=== PATIENT | female | born 1950 | race American Indian/Alaskan Native ===

== ENCOUNTER 2016-10-04 10:10 | Inpatient (IN) | payer OTHER ==
--- NOTE | 2016-10-04 10:44 | Emergency Department Report ---
Chief Complaint: Chest Pain Stated Complaint: ABD PAIN LEFT SIDE Time Seen by Provider: 10/04/16 10:39 - HPI History of Present Illness: 66 y/o female complain of chest pain x 1 day with right flank pain .pt state pain start last night at work .pt state pain is sharp pain in the right flank pain.no prior medication .no prior injury . - ROS Review of Systems: per HPI - Exam Vital Signs: Vital Signs 10/04/16 10:19 Temperature 99.2 F Pulse Rate 95 H Respiratory 18 Rate Blood Pressure 175/82 O2 Sat by Pulse 97 Oximetry Physical Exam: GENERAL: The patient is well-developed and well-nourished. Patient is in NAD. HENT: Normocephalic. Atraumatic. Patient has moist mucous membranes. Throat: No erythema, swelling or exudates. EYES: Extraocular motions are intact, PERRL NECK: Supple. No meningitic signs are noted. There is no adenopathy noted. CHEST/LUNGS: Clear to auscultation bilaterally. No wheezing, rales or rhonchi noted. There is no respiratory distress noted. HEART/CARDIOVASCULAR: Regular rate and rhythm. Normal S1 S2. No murmurs, rubs , clicks, or gallops. ABDOMEN: Abdomen is soft, nontender.. Bowel sounds normoactive. There is no abdominal distention. Negative rebound tenderness. : Deferred. SKIN: There is no rash. There is no edema. There is no diaphoresis. NEURO: The patient is A&Ox3. The patient has no focal neurologic deficits. MUSCULOSKELETAL: There is no tenderness or deformity. There is no limitation range of motion. PSYCH: Pt has appropriate mood and affect. MSE screening note: Focused history and physical exam performed. Due to findings the following was ordered: ED Disposition for MSE Condition: Stable
[2016-10-04 11:24] LABS: Basophils % (Auto) 0.6 % (0.0-1.8); Eosinophils % (Auto) 0.1 % (0.0-4.3); Hematocrit 38.7 % (30.3-42.9); Hemoglobin 12.9 gm/dl (10.1-14.3); Mean Corpuscular HGB Conc 33 % (30-34); Mean Corpuscular Hemoglobin 29 pg (28-32); Mean Corpuscular Volume 86 fl (79-97); Platelet Count 340 K/mm3 (140-440); Red Blood Count 4.52 M/mm3 (3.65-5.03); White Blood Count 18.3 K/mm3 (4.5-11.0)
[2016-10-04 11:26] LABS: Creatine Kinase MB < 1.0 ng/mL (0.0-4.0)
[2016-10-04 11:27] LABS: Anion Gap 21 mmol/L; BUN/Creatinine Ratio 11.66; Blood Urea Nitrogen 7 mg/dL (7-17); Calcium 9.5 mg/dL (8.4-10.2); Carbon Dioxide 26 mmol/L (22-30); Chloride 92.8 mmol/L (98-107); Creatine Kinase 47 units/L (30-135); Glucose 143 mg/dL (65-100); Potassium 3.6 mmol/L (3.6-5.0); Sodium 136 mmol/L (137-145)
[2016-10-04 11:32] LABS: INR 0.95 (0.87-1.13)
[2016-10-04 11:35] LABS: Bilirubin,Urine NEG (Negative); Blood,Urine NEG (Negative); Ketones,Urine NEG (Negative); Leukocyte Esterase,Urine NEG (Negative); Mucus,Urine FEW /HPF; Nitrite,Urine NEG (Negative); Protein,Urine <15 mg/dL mg/dL (Negative); Urobilinogen,Urine < 2.0 mg/dL (<2.0); WBC,Urine < 1.0 /HPF (0.0-6.0)
--- NOTE | 2016-10-04 17:34 | XRay Report ---
FINAL REPORT EXAM: XR CHEST ROUTINE 2V HISTORY: chest pain TECHNIQUE: PA and lateral views of the chest PRIORS: None. FINDINGS: Lines, tubes, and devices: N/A Lungs and pleura: Trachea is normal in position. Early infiltrate or atelectasis is noted in the left lower lobe posteriorly. There is a single linear parenchymal marking extending laterally from the right hilum. This may represent scarring or atelectasis. There is no evidence for pleural effusion, vascular congestion, or pneumothorax. Cardiomediastinal silhouette: Cardiac and mediastinal silhouettes are unremarkable. Other: Bony structures are intact. IMPRESSION: infiltrate or atelectasis in the left lower lobe posteriorly. Linear scarring or atelectasis extending from the right hilum.
[2016-10-04] MEDS ORDERED: ZOFRAN IV ONE (21:17)
[2016-10-04] MEDS ORDERED: MORPHINE IV ONE (21:17)
[2016-10-04] MEDS ORDERED: PEPCID IV ONE (21:17)
[2016-10-04] MEDS ORDERED: NACL ONE (21:18)
[2016-10-04] MEDS ORDERED: TYLENOL PO ONE (21:18)
--- NOTE | 2016-10-04 21:19 | Emergency Department Report ---
ED General Adult HPI - General Chief complaint: Chest Pain Stated complaint: ABD PAIN LEFT SIDE Time Seen by Provider: 10/04/16 20:58 Source: patient, RN notes reviewed Mode of arrival: Ambulatory Limitations: No Limitations - History of Present Illness Initial comments: This is a 66-year-old female, previously unknown to me. She does not have a primary care doctor. She reports a past medical history of glaucoma. Denies a history of abdominal surgeries. Also has hypertension. She presents to the ER complaining of left-sided abdominal pain. The pain is epigastric, left upper quadrant and left lower quadrant. It is sharp. It increases with palpation and range of motion. It decreases with rest. Positive nausea, no vomiting. No irritative or obstructive urinary symptoms, positive constipation for 2 days. No hematemesis. No bright red blood per rectum. Of note, on review of systems the patient did endorse that she had central chest pressure and discomfort that was independent of palpation and worsened with inspiration. This has been present on and off for the past few days as well. There is no leg pain. No leg swelling. No recent trips greater than 4 hours. No recent hospital admissions. The pain does not radiate to the back, arms and neck. It is not associated with vomiting or diaphoresis. -: Gradual Location: chest, abdomen Quality: burning, aching Consistency: intermittent Improves with: rest Worsens with: movement Associated Symptoms: chest pain, loss of appetite, malaise, nausea/vomiting, weakness - Related Data Home Medications Medication Instructions Recorded Confirmed Last Taken Hydrochlorothiazide [HCTZ] 25 mg PO QDAY 10/04/16 10/04/16 10/04/16 amLODIPine [Norvasc] 5 mg PO DAILY 10/04/16 10/04/16 10/04/16 Allergies Allergy/AdvReac Type Severity Reaction Status Date / Time codeine Allergy Vomiting Verified 10/04/16 10:19 ED Review of Systems ROS: Stated complaint: ABD PAIN LEFT SIDE Other details as noted in HPI Constitutional: malaise, weakness Eyes: denies: eye discharge ENT: denies: epistaxis Respiratory: see HPI Cardiovascular: chest pain Gastrointestinal: abdominal pain, constipation. denies: hematochezia Genitourinary: denies: urgency, dysuria Musculoskeletal: back pain Skin: denies: lesions Neurological: weakness Psychiatric: denies: anxiety ED Past Medical Hx - Past Medical History Hx Hypertension: Yes Hx Arthritis: Yes Additional medical history: glaucoma - Social History Smoking Status: Current Every Day Smoker - Medications Home Medications: Home Medications Medication Instructions Recorded Confirmed Last Taken Type Hydrochlorothiazide [HCTZ] 25 mg PO QDAY 10/04/16 10/04/16 10/04/16 History amLODIPine [Norvasc] 5 mg PO DAILY 10/04/16 10/04/16 10/04/16 History ED Physical Exam - General Limitations: No Limitations General appearance: alert, in no apparent distress - Head Head exam: Present: atraumatic, normocephalic - Eye Eye exam: Present: normal appearance, EOMI. Absent: nystagmus - ENT ENT exam: Present: normal exam, normal orophraynx, mucous membranes moist, normal external ear exam - Neck Neck exam: Present: normal inspection. Absent: tenderness, meningismus - Respiratory Respiratory exam: Present: normal lung sounds bilaterally. Absent: respiratory distress, wheezes, rales, rhonchi, stridor, chest wall tenderness - Cardiovascular Cardiovascular Exam: Present: regular rate, normal rhythm, normal heart sounds. Absent: bradycardia, tachycardia, irregular rhythm, systolic murmur, diastolic murmur, rubs, gallop - GI/Abdominal GI/Abdominal exam: Present: soft, tenderness, normal bowel sounds, other (left lower quadrant, left lower quadrant, left upper quadrant tender. No rebound, guarding or peritoneal signs.). Absent: distended, guarding, rebound, rigid, pulsatile mass - Extremities Exam Extremities exam: Present: normal inspection, full ROM, normal capillary refill. Absent: tenderness, pedal edema, joint swelling, calf tenderness - Back Exam Back exam: Present: normal inspection, full ROM. Absent: tenderness, CVA tenderness (R), CVA tenderness (L), muscle spasm, paraspinal tenderness, vertebral tenderness - Neurological Exam Neurological exam: Present: alert, oriented X3, other (Extraocular movements intact. Tongue midline. No facial droop. Facial sensation intact to light touch in the V1, V2, V3 distribution bilaterally. 5 and 5 strength in 4 extremities.. Sensation is intact to light touch in 4 extremities.). Absent: motor sensory deficit - Psychiatric Psychiatric exam: Present: normal affect, normal mood - Skin Skin exam: Present: warm, dry, intact, normal color. Absent: rash ED Course Vital Signs 10/04/16 10/04/16 10/04/16 10:19 21:00 21:01 Temperature 99.2 F Pulse Rate 95 H 96 H 93 H Respiratory 18 26 H 31 H Rate Blood Pressure 175/82 142/71 O2 Sat by Pulse 97 100 Oximetry 10/04/16 10/04/16 10/04/16 21:02 21:06 21:07 Temperature 98.7 F Pulse Rate 94 H Respiratory 19 20 Rate Blood Pressure 142/71 O2 Sat by Pulse 97 100 Oximetry 10/04/16 10/04/16 10/04/16 21:30 22:29 22:30 Temperature Pulse Rate 89 84 Respiratory 32 H 22 Rate Blood Pressure 128/76 121/48 121/48 O2 Sat by Pulse 100 99 100 Oximetry 10/04/16 10/04/16 10/04/16 22:40 23:00 23:30 Temperature Pulse Rate 85 87 82 Respiratory 28 H 21 22 Rate Blood Pressure 121/48 116/58 116/58 O2 Sat by Pulse 97 97 Oximetry 10/05/16 10/05/16 10/05/16 00:00 00:30 01:00 Temperature Pulse Rate 103 H Respiratory 26 H Rate Blood Pressure 110/58 116/53 115/53 O2 Sat by Pulse 90 91 96 Oximetry 10/05/16 10/05/16 10/05/16 01:13 01:30 01:40 Temperature Pulse Rate Respiratory Rate Blood Pressure 115/53 110/50 110/50 O2 Sat by Pulse 93 97 93 Oximetry 10/05/16 10/05/16 10/05/16 01:42 01:44 02:04 Temperature Pulse Rate 134 H 76 72 Respiratory 17 Rate Blood Pressure 110/50 110/50 110/54 O2 Sat by Pulse 90 92 Oximetry 10/05/16 10/05/16 10/05/16 02:10 03:00 04:00 Temperature Pulse Rate 76 75 Respiratory 28 H 18 Rate Blood Pressure 114/59 119/66 O2 Sat by Pulse 100 90 93 Oximetry - Reevaluation(s) Reevaluation #1: 10/04/16 22:07 Differential diagnosis: Colitis, diverticulitis, enteritis, pneumonia, malignancy assessment and plan: 66-year-old female with a main complaint of abdominal pain. She is tender, has a low-grade temperature of 99.2, and leukocytosis 18. I highly suspect colonic pathology. She will be treated symptomatically with pain medication. She has no pulmonary embolus or DVT risk factors, she is low risk by well's criteria. I find her to be low risk by ADAN score, and low risk by heart score. X-ray chest suggests infiltrate versus atelectasis. We will obtain contrast-enhanced CT scan of the abdomen/pelvis and reassess. Reevaluation #2: 10/04/16 22:09 Sodium: 136 Potassium: 3.6 Chloride: 92.8 Reevaluation #3: 10/04/16 23:11 She reports she feels improved. Pain is somewhat improved. CT scan demonstrates pierre-diverticulitis with microperforations, with no abscess. Antibiotics ordered. Case is discussed with general surgery, Dr. Mariscal, who is going to follow as a consult. Case is discussed with the Hospital physician , , who accepts the patient to his service. Medical decision makin-year-old female with perforated diverticulitis, tenderness, leukocytosis requires inpatient admission for pain control, IV antibiotics, Gen. surgery consultation, serial abdominal exams. ED Medical Decision Making - Lab Data Result diagrams: 10/04/16 10:50 10/04/16 10:50 Vital Signs 10/04/16 10/04/16 10/04/16 10:19 21:00 21:01 Temperature 99.2 F Pulse Rate 95 H 96 H 93 H Respiratory 18 26 H 31 H Rate Blood Pressure 175/82 142/71 O2 Sat by Pulse 97 100 Oximetry 10/04/16 10/04/16 21:06 21:07 Temperature 98.7 F Pulse Rate Respiratory 20 Rate Blood Pressure O2 Sat by Pulse 100 Oximetry Labs 10/04/16 10/04/16 10/04/16 10:50 10:50 10:50 WBC 18.3 H RBC 4.52 Hgb 12.9 Hct 38.7 MCV 86 MCH 29 MCHC 33 RDW 14.0 Plt Count 340 Lymph % (Auto) 12.6 L [place] % (Auto) 4.6 Eos % (Auto) 0.1 Baso % (Auto) 0.6 Lymph # 2.3 [place] # 0.8 Eos # 0.0 Baso # 0.1 Seg Neutrophils % 82.1 H Seg Neutrophils # 15.0 H PT 12.6 INR 0.95 APTT 25.0 Carbon Dioxide 26 BUN 7 Creatinine 0.6 L Estimated GFR > 60 BUN/Creatinine Ratio 11.66 Glucose 143 H Calcium 9.5 Total Creatine Kinase 47 CK-MB (CK-2) < 1.0 CK-MB (CK-2) Rel Index 2.1 Troponin T < 0.010 Urine Color Urine Turbidity Urine pH Ur Specific [place] Urine Protein Urine Glucose (UA) Urine Ketones Urine Blood Urine Nitrite Urine Bilirubin Urine Urobilinogen Ur Leukocyte Esterase Urine WBC (Auto) Urine RBC (Auto) U Epithel Cells (Auto) Urine Mucus 10/04/16 10:59 WBC RBC Hgb Hct MCV MCH MCHC RDW Plt Count Lymph % (Auto) [place] % (Auto) Eos % (Auto) Baso % (Auto) Lymph # [place] # Eos # Baso # Seg Neutrophils % Seg Neutrophils # PT INR APTT Carbon Dioxide BUN Creatinine Estimated GFR BUN/Creatinine Ratio Glucose Calcium Total Creatine Kinase CK-MB (CK-2) CK-MB (CK-2) Rel Index Troponin T Urine Color Yellow Urine Turbidity Clear Urine pH 5.0 Ur Specific [place] 1.014 Urine Protein <15 mg/dl Urine Glucose (UA) Neg Urine Ketones Neg Urine Blood Neg Urine Nitrite Neg Urine Bilirubin Neg Urine Urobilinogen < 2.0 Ur Leukocyte Esterase Neg Urine WBC (Auto) < 1.0 Urine RBC (Auto) 1.0 U Epithel Cells (Auto) 1.0 Urine Mucus Few - EKG Data 10/04/16 22:10 normal sinus, 90 bpm, QTC 406 ms, nonspecific T-wave abnormality , not morphologically consistent with STEMI. - Radiology Data Radiology results: report reviewed, image reviewed X-ray chest demonstrates infiltrate or atelectasis in the left lower lobe posteriorly. There is linear scarring or atelectasis extending from the right hilum. Critical care attestation.: If time is entered above; I have spent that time in minutes in the direct care of this critically ill patient, excluding procedure time. ED Disposition Clinical Impression: Diverticulitis Qualifiers: Diverticulitis site: unspecified part of intestinal tract Diverticulitis bleeding: without bleeding Diverticulitis complication: with perforation Qualified Code(s): K57.80 - Diverticulitis of intestine, part unspecified, with perforation and abscess without bleeding Disposition: OP ADMITTED IP TO THIS HOSP Is pt being admited?: Yes Condition: Good
[2016-10-04] MEDS: NACL 0.9% 500 ML IV SCH (22:41)
[2016-10-04] MEDS ORDERED: ZOSYN/NS 4.5GM/100ML 100 ML IV ONE (23:11)
--- NOTE | 2016-10-04 23:34 | Cat Scan Report ---
FINAL REPORT EXAM: CT ABDOMEN PELVIS W CON HISTORY: left sided abd pain TECHNIQUE: Standard enhanced CT of the abdomen and pelvis. Delayed images were also obtained through the abdomen and pelvis. Coronal and sagittal reconstruction was also performed. Contrast: 100 mL Omnipaque 300 given IV. PRIORS: CT a/P 01/23/2015 FINDINGS: There is an inflammatory process in the left flank. Most of the inflammation appears to surround the mid to distal descending colon in an area where there is diverticulosis. Findings are most likely consistent with active diverticulitis. There are a few small bubbles of air in the adjacent fat suggesting localized perforation. No discrete abscess or phlegmon is noted. The inflammatory changes extend along Gerota's fascia inferiorly to the level of the superior acetabula. Superiorly, inflammatory changes extend to the pancreatic tail and inferior tip of the spleen. There are a number of diverticuli also seen in the distal sigmoid colon and scattered in the descending colon. Within the abdomen, the liver, spleen, pancreas, adrenal glands, and kidneys are unremarkable. Gallbladder has been surgically removed. No evidence for retroperitoneal or pelvic lymphadenopathy is seen. The small bowel loops have normal caliber. Within the pelvis, the bladder is unremarkable. The uterus is enlarged and contains several focal rounded areas of hyperdensity, probably due to underlying fibroids. The largest is in the posterior fundus measuring 3.5 x 3.9 cm (axial image 133). No evidence for mass or lymphadenopathy is seen in the pelvis. Images through the upper abdomen include the lung bases which demonstrate mild linear atelectasis in the left base. Bony structures show no focal abnormalities and are intact. IMPRESSION: 1. Findings consistent with acute diverticulitis in the mid to distal descending colon. Evidence for localized perforation is seen but no abscess is noted. Significant surrounding inflammatory changes are present along Gerota's fascia. 2. Uterine fibroids 3. Mild left basilar atelectasis
--- NOTE | 2016-10-05 00:23 | Event Note ---
Date: 10/04/16 See H/p in reports Acute Diverticulitis HTN DVT prophylaxis
[2016-10-05] MEDS ORDERED: DULCOLAX PR PRN (00:29)
[2016-10-05] MEDS ORDERED: MILK OF MAGNESIA PO PRN (00:29)
[2016-10-05] MEDS ORDERED: TYLENOL PO PRN ×2 (00:29→00:38)
[2016-10-05] MEDS ORDERED: TYLENOL PR PRN (01:00)
[2016-10-05] MEDS ORDERED: LOVENOX SUB-Q ONE (01:51)
--- NOTE | 2016-10-05 01:58 | Admit Criteria Form ---
Admission Criteria Documentation: DIVERTICULITIS, ACUTE Clinical Indications for Admission to Inpatient Care (Place 'X' for any and all applicable criteria): Admission is indicated for ANY ONE of the following (1)(2)(3)(4): [ X]I. Peritoneal signs on physical examination (eg, acute abdominal pain, abdominal tenderness and guarding) [ ]II. Hemodynamic instability [ ]III. Persistent gross bleeding per rectum [ ]IV. Need for inpatient surgical intervention [X ]V. Significant abnormality on imaging study including ANY ONE of the following: [ X]a) Abscess [ ]b) Obstruction [ ]c) Fistula [ ]d) Ileus [ ]e) Free perforation [ ]. Immunocompromised patient (steroid use, chemotherapy, uremia, AIDS , transplant patient ) with acute symptoms [ ]VII Inpatient admission required rather than observation care (also use Diverticulitis, Acute: Observation Care as appropriate) because of ANY ONE of the following: [ ]a) High fever or infection. requiring inpatient admission as indicated by ANY ONE of the following(5): [ ]1) Appropriate outpatient or observation care antimicrobial treatment unavailable, not effective, not feasible [ ]2) Temperature > 103.1 degrees F (39.5 degrees C) (oral) or < 96.8 degrees F (36 degrees C)(rectal) that does not respond to all emergency treatment measures [ ]3) Temperature> 104.9 degrees F (40.5 degrees C)( oral) [ ]4) Documented bacteremia [ ]b) Severe pain requiring acute inpatient management [ ]c) Severe electrolyte abnormalities requiring inpatient care [ ]d) Ongoing transfusion for blood loss (> 2 units) [ ]e) IV fluid to replace significant ongoing losses (> 3 L/m2 per day) [ ]f) Parenteral nutrition regimen that must be implemented on inpatient basis [ ]g) Other condition, treatment or monitoring requiring inpatient admission Extended stay beyond goal length of stay may be needed for (2) (15) : [ ]a) Unresolved symptoms (19) [ ]b) Complications [ ]c) Diverticular hemorrhage(2) The original [facility] [employer] content created by [facility] has been revised. The portions of the content which have been revised are identified through the use of italic text or in bold, and [facility] has neither reviewed nor approved the modified material. All other unmodified content is copyright [facility]. Please see references footnoted in the original [facility] edition 2016 Admission Criteria Met: Yes
[2016-10-05] MEDS ORDERED: ZOSYN/NS 4.5GM/100ML 100 ML IV SCH (02:00)
[2016-10-05] MEDS ORDERED: CATAPRES-TTS PATCH TD SCH (02:00)
[2016-10-05] MEDS: D5NS 1,000 ML IV SCH ×3 (02:07→21:50)
--- NOTE | 2016-10-05 02:25 | History and Physical Report ---
CHIEF COMPLAINT: Left upper quadrant and left flank pain, going on for 2 days. HISTORY OF PRESENT ILLNESS: A 66-year-old female, comes in for severe abdominal pain, especially in the left upper quadrant, left flank, and left lower quadrant. Pain is about 10 on a scale of 1-10, sharp in nature, increases with palpation and range of motion, decreases with rest. Nausea present. No vomiting. No constipation. No altered bowel movement. No hematemesis. No hematochezia. Also central chest pressure, worsening with inspiration. This has been present on and off for the past 2 days. No leg pain. No leg swelling. No shortness of breath. PAST MEDICAL HISTORY: Significant for hypertension. CURRENT MEDICATIONS: Hydrochlorothiazide 25 mg once a day and amlodipine 5 mg once a day. SOCIAL HISTORY: Current everyday smoker, about one pack a day. PAST SURGICAL HISTORY: None. FAMILY HISTORY: Significant for hypertension. REVIEW OF SYSTEMS: GENERAL: No fever, no chills. HEENT: No sore throat, no postnasal drip. NECK: Supple. No neck stiffness. No lymphadenopathy. CARDIOVASCULAR AND RESPIRATORY: No cough, no shortness of breath. Some chest pain radiating to the left upper quadrant present. Also, more with inspiration. GASTROINTESTINAL: Left upper quadrant and left lower quadrant pain and tenderness present. EXTREMITIES: Good. No edema, no tingling and numbness. CENTRAL NERVOUS SYSTEM: No focal deficits. SKIN: No rashes. ENDOCRINE: No recent weight gain, weight loss, polyphagia, polyuria, polydipsia. HEMATOLOGIC AND LYMPHATIC: No easy bruising. GENITOURINARY: No hematuria, no flank pain. A 14-point review of systems done other than the left upper quadrant, left flank, and left lower quadrant pain and pain radiating to the left side of the chest, other systems are essentially negative. PHYSICAL EXAMINATION: GENERAL: Elderly female, cooperative during examination. VITAL SIGNS: Blood pressure is 175/82, temperature is 99.2, pulse is 95, respiratory rate is 18. HEENT: Unremarkable. Pupils equal and reactive. NECK: Supple. No lymphadenopathy, no thyromegaly. LUNGS: Clear to auscultation and percussion. Good air entry. CARDIOVASCULAR: S1, S2 heard. No gallop, no murmur, no rub. Apical impulse in the left fifth intercostal space and midclavicular line. ABDOMEN: Left upper quadrant and left lower quadrant tenderness present. Bowel sounds are normal. SKIN: No rashes. CENTRAL NERVOUS SYSTEM: Alert and oriented x 4, no focal deficits. LABORATORY DATA: White count is 18,300, H and H is 12.9 and 38.7, platelet count is [id number]. Sodium, potassium, chloride are pending. BUN and creatinine 7 and 0.6. Lactic acid is 1.5. CK-MB is normal. Urine is normal. CAT scan of the abdomen shows findings consistent with acute diverticulitis in the mid to distal descending colon. Evidence for localized perforation is seen, but no abscess is noted. Significant surrounding inflammatory changes are present along Gerota's fascia. Uterine fibroids present. Mild left basilar atelectasis present. White count is 18,300, H and H is 12.9 and 38.7. ASSESSMENT AND PLAN: 1. Acute diverticulitis. We will start with IV Zosyn for the time being. Small bowel of air in the fat suggesting localized perforation which is microperforation. Can be treated conservatively. Surgery consult requested. Continue IV Zosyn 4.5 q. 8h.,very effective for intra-abdominal infections, Zosyn has both gram-positive and gram-negative and anaerobic coverage. 2. Hypertension. Hydrochlorothiazide and amlodipine kept on hold. TTS-1 patch initiated q. weekly because the patient is n.p.o. 3. Deep venous thrombosis prophylaxis, Lovenox 40 mg subcutaneous daily. JOB# [id number] SIA/JADYN BRYSON
[2016-10-05] MEDS: ZOSYN/NS 4.5GM/100ML 100 ML IV SCH ×3 (08:30→18:18)
--- NOTE | 2016-10-05 08:44 | Consultation ---
History of Present Illness Consult date: 10/05/16 Reason for consult: abdominal pain Chief complaint: abd pain - History of present illness History of present illness: this is a 66 year old female with a 48 hour hx of abd pain, LUQ who presented to the ER with a WBC of 18K, and a CT abd pelvis revealing left sided diverticulitis with microperforation contained in mesentery and no abcess. Past History Past Medical History: hypertension Past Surgical History: No surgical history Social history: smoking Medications and Allergies Allergies Allergy/AdvReac Type Severity Reaction Status Date / Time codeine Allergy Vomiting Verified 10/04/16 10:19 Home Medications Medication Instructions Recorded Confirmed Last Taken Type Hydrochlorothiazide [HCTZ] 25 mg PO QDAY 10/04/16 10/04/16 10/04/16 History amLODIPine [Norvasc] 5 mg PO DAILY 10/04/16 10/04/16 10/04/16 History Active Meds: Active Medications Acetaminophen (Tylenol) 650 mg PO Q4H PRN PRN Reason: Fever Acetaminophen (Tylenol) 650 mg [place] Q4H PRN PRN Reason: Fever Bisacodyl (Dulcolax) 10 mg [place] QDAY PRN PRN Reason: Constipation unrelieved by MOM Clonidine HCl (Catapres-Tts Patch) 0.1 mg TD We [facility] Last Admin: 10/05/16 02:04 Dose: Not Given Enoxaparin Sodium (Lovenox) 40 mg SUB-Q QDAY@2200 COMPA Hydromorphone HCl (Dilaudid) 1 mg IV Q3H PRN PRN Reason: Pain , Severe (7-10) Dextrose/Sodium Chloride (D5ns) 1,000 mls @ 75 mls/hr IV DIRECT [facility] Last Admin: 10/05/16 02:07 Dose: 75 mls/hr Piperacillin Sod/Tazobactam Sod (Zosyn/Ns 4.5gm/100ml) 100 mls @ 200 mls/hr IV Q8H [facility] PRN Reason: Protocol Magnesium Hydroxide (Milk Of Magnesia) 30 ml PO Q4H PRN PRN Reason: Constipation Ondansetron HCl (Zofran) 4 mg IV Q3H PRN PRN Reason: N/V unrelieved by Reglan Sodium Chloride (Nacl 0.9% 500 Ml) 2,000 ml IV NOW [facility] Last Admin: 10/04/16 22:41 Dose: 2,000 ml Review of Systems - Constitutional other (abd pain) Exam Vital Signs Temp Pulse Resp BP Pulse Ox 99.2 F 95 H 18 175/82 97 10/04/16 10:19 10/04/16 10:19 10/04/16 10:19 10/04/16 10:19 10/04/16 10:19 - General physical appearance Positive: no pain - Eyes Positive: PERRL, normal occular movement - ENT Positive: normal pinna, normal nares, normal mucosa, no hearing loss, no congestion - Neck Positive: no masses, no bruits, trachea midline, no venous distension - Respiratory Positive: normal expansion, normal respiratory effort, clear to auscultation - Cardiovascular Rhythm: regular - Extremities Extremities: no ischemia, pulses symmetrical, No edema Peripheral Pulses: within normal limits - Breasts Breasts: deferred - Abdomen Abdomen: Present: bowel sounds normal, other (tender LUQ with no rebound or guarding) Results - Labs 10/04/16 10:50 10/04/16 10:50 Assessment and Plan Complicated left sided diverticulitis, first episode with microperforation, constained within mesentery, no abcess HTN Agree with conservative management, NPO, sips of liquids with meds and ice chips OK IV antibiotics, iv fluids, pain control, serial WBC NO role for surgical intervention at present-conservative management.
[2016-10-05] MEDS: DILAUDID IV PRN ×2 (12:33→21:36)
[2016-10-05] MEDS: ZOFRAN IV PRN (18:27)
[2016-10-05] MEDS: LOVENOX SUB-Q SCH (21:35)
[2016-10-05] MEDS: NACL 0.9% 500 ML IV SCH (22:57)
--- NOTE | 2016-10-06 06:37 | Event Note ---
Date: 10/06/16 Fever noted, could be secondary to Zosyn, (drug fever), continue NPO, iv hydration, pain control , conserv management, consider PIC line.
[2016-10-06] MEDS: ZOSYN/NS 4.5GM/100ML 100 ML IV SCH ×2 (06:43→10:34)
--- NOTE | 2016-10-06 10:17 | XRay Report ---
ABDOMEN TWO VIEWS: History: Abdominal pain. There is no evidence of free air beneath the diaphragms. The gas pattern within the abdomen is unremarkable. There is no evidence of bowel dilatation, significant air-fluid levels, or masses. Cholecystectomy changes are noted. The psoas margins are adequately visualized. IMPRESSION: Unremarkable abdomen.
[2016-10-06] MEDS: LEVAQUIN 500MG/100ML 100 ML IV SCH (10:39)
[2016-10-06] MEDS: DILAUDID IV PRN ×3 (10:39→22:50)
[2016-10-06] MEDS: TYLENOL PO PRN ×2 (13:27→22:49)
[2016-10-06] MEDS: FLAGYL 500 MG/100 ML 100 ML IV SCH ×2 (13:28→22:49)
[2016-10-06 14:15] LABS: Basophils % (Auto) 0.3 % (0.0-1.8); Eosinophils % (Auto) 0.3 % (0.0-4.3); Hematocrit 32.1 % (30.3-42.9); Hemoglobin 10.6 gm/dl (10.1-14.3); Mean Corpuscular HGB Conc 33 % (30-34); Mean Corpuscular Hemoglobin 29 pg (28-32); Mean Corpuscular Volume 88 fl (79-97); Platelet Count 259 K/mm3 (140-440); Red Blood Count 3.66 M/mm3 (3.65-5.03); Red Cell Distribution Width 13.5 % (13.2-15.2)
[2016-10-06] MEDS: D5NS 1,000 ML IV SCH (18:15)
[2016-10-06] MEDS: LOVENOX SUB-Q SCH (22:49)
[2016-10-06] MEDS: NACL 0.9% 500 ML IV SCH (23:09)
[2016-10-07] MEDS: DILAUDID IV PRN ×3 (03:11→21:28)
[2016-10-07] MEDS: FLAGYL 500 MG/100 ML 100 ML IV SCH ×3 (05:16→21:30)
--- NOTE | 2016-10-07 07:34 | Event Note ---
Date: 10/07/16 Fever down off Zosyn, on levaquin and flagyll, appears clinically improved, still complains of left flank pain, continue present therapy.
[2016-10-07 07:39] LABS: Basophils % (Auto) 0.4 % (0.0-1.8); Eosinophils % (Auto) 0.1 % (0.0-4.3); Hematocrit 29.5 % (30.3-42.9); Hemoglobin 9.8 gm/dl (10.1-14.3); Mean Corpuscular HGB Conc 33 % (30-34); Mean Corpuscular Hemoglobin 29 pg (28-32); Mean Corpuscular Volume 88 fl (79-97); Platelet Count 249 K/mm3 (140-440); Red Blood Count 3.34 M/mm3 (3.65-5.03); Red Cell Distribution Width 13.5 % (13.2-15.2); White Blood Count 10.7 K/mm3 (4.5-11.0)
[2016-10-07] MEDS: D5NS 1,000 ML IV SCH (08:51)
[2016-10-07] MEDS: ZOFRAN IV PRN (08:51)
[2016-10-07] MEDS: LEVAQUIN 500MG/100ML 100 ML IV SCH (10:19)
--- NOTE | 2016-10-07 11:58 | Progress Note ---
Assessment and Plan - Patient Problems (1) Diverticulitis Current Visit: Yes Status: Acute Qualifiers: Diverticulitis site: unspecified part of intestinal tract Diverticulitis bleeding: without bleeding Diverticulitis complication: with perforation Qualified Code(s): K57.80 - Diverticulitis of intestine, part unspecified, with perforation and abscess without bleeding Plan to address problem: Surgery consulted, IV abx, IVF, supportive care, bowel rest, advance diet as tolerated. (2) Abdominal pain Current Visit: Yes Status: Acute Plan to address problem: secondary to diverticulitis. (3) DVT prophylaxis Current Visit: Yes Status: Acute History Interval history: Pt resting in bed, Pt complains of abdominal pain. Pt states that pain has improved since yesterday. Pt tolerating ich chips. Pt denies fever, chills, CP, palpitations. No reported nursing events. Hospitalist Physical - Constitutional Vitals: Temp Pulse Resp BP Pulse Ox 97.0 F L 71 16 128/66 100 10/07/16 08:00 10/07/16 08:00 10/07/16 08:00 10/07/16 08:00 10/07/16 08:00 General appearance: Present: no acute distress - EENT Eyes: Present: PERRL ENT: hearing intact - Neck Neck: Present: supple - Respiratory Respiratory: bilateral: CTA - Cardiovascular Rhythm: regular Heart Sounds: Present: S1 & S2 Peripheral Pulses: within normal limits - Abdominal General gastrointestinal: soft, tender, non-distended, normal bowel sounds, no hepatomegaly, no splenomegaly - Integumentary Integumentary: Present: clear, dry - Psychiatric Psychiatric: appropriate mood/affect, cooperative - Neurologic Neurologic: CNII-XII intact Results - Labs CBC & Chem 7: 10/07/16 06:47 10/04/16 10:50 Labs: Laboratory Last Values WBC 10.7 K/mm3 (4.5-11.0) 10/07/16 06:47 RBC 3.34 M/mm3 (3.65-5.03) L 10/07/16 06:47 Hgb 9.8 gm/dl (10.1-14.3) L 10/07/16 06:47 Hct 29.5 % (30.3-42.9) L 10/07/16 06:47 MCV 88 fl (79-97) 10/07/16 06:47 MCH 29 pg (28-32) 10/07/16 06:47 MCHC 33 % (30-34) 10/07/16 06:47 RDW 13.5 % (13.2-15.2) 10/07/16 06:47 Plt Count 249 K/mm3 (140-440) 10/07/16 06:47 Lymph % (Auto) 26.7 % (13.4-35.0) 10/07/16 06:47 [place] % (Auto) 8.6 % (0.0-7.3) H 10/07/16 06:47 Eos % (Auto) 0.1 % (0.0-4.3) 10/07/16 06:47 Baso % (Auto) 0.4 % (0.0-1.8) 10/07/16 06:47 Lymph # 2.9 K/mm3 (1.2-5.4) 10/07/16 06:47 [place] # 0.9 K/mm3 (0.0-0.8) H 10/07/16 06:47 Eos # 0.0 K/mm3 (0.0-0.4) 10/07/16 06:47 Baso # 0.0 K/mm3 (0.0-0.1) 10/07/16 06:47 Seg Neutrophils % 64.2 % (40.0-70.0) 10/07/16 06:47 Seg Neutrophils # 6.9 K/mm3 (1.8-7.7) 10/07/16 06:47 PT 12.6 Sec. (12.2-14.9) 10/04/16 10:50 INR 0.95 (0.87-1.13) 10/04/16 10:50 APTT 25.0 Sec. (24.2-36.6) 10/04/16 10:50 Carbon Dioxide 26 mmol/L (22-30) 10/04/16 10:50 BUN 7 mg/dL (7-17) 10/04/16 10:50 Creatinine 0.6 mg/dL (0.7-1.2) L 10/04/16 10:50 Estimated GFR > 60 ml/min 10/04/16 10:50 BUN/Creatinine Ratio 11.66 % 10/04/16 10:50 Glucose 143 mg/dL (65-100) H 10/04/16 10:50 Lactic Acid 1.5 mmol/L (0.7-2.0) 10/04/16 21:45 Calcium 9.5 mg/dL (8.4-10.2) 10/04/16 10:50 Total Creatine Kinase 47 units/L (30-135) 10/04/16 10:50 CK-MB (CK-2) < 1.0 ng/mL (0.0-4.0) 10/04/16 10:50 CK-MB (CK-2) Rel Index 2.1 (0-4) 10/04/16 10:50 Troponin T < 0.010 ng/mL (0.00-0.029) 10/04/16 21:45 Urine Color Yellow (Yellow) 10/04/16 10:59 Urine Turbidity Clear (Clear) 10/04/16 10:59 Urine pH 5.0 (5.0-7.0) 10/04/16 10:59 Ur Specific [place] 1.014 (1.003-1.030) 10/04/16 10:59 Urine Protein <15 mg/dl mg/dL (Negative) 10/04/16 10:59 Urine Glucose (UA) Neg mg/dL (Negative) 10/04/16 10:59 Urine Ketones Neg mg/dL (Negative) 10/04/16 10:59 Urine Blood Neg (Negative) 10/04/16 10:59 Urine Nitrite Neg (Negative) 10/04/16 10:59 Urine Bilirubin Neg (Negative) 10/04/16 10:59 Urine Urobilinogen < 2.0 mg/dL (<2.0) 10/04/16 10:59 Ur Leukocyte Esterase Neg (Negative) 10/04/16 10:59 Urine WBC (Auto) < 1.0 /HPF (0.0-6.0) 10/04/16 10:59 Urine RBC (Auto) 1.0 /HPF (0.0-6.0) 10/04/16 10:59 U Epithel Cells (Auto) 1.0 /HPF (0-13.0) 10/04/16 10:59 Urine Mucus Few /HPF 10/04/16 10:59
--- NOTE | 2016-10-07 12:00 | Progress Note ---
Assessment and Plan - Patient Problems (1) Diverticulitis Current Visit: Yes Status: Acute Qualifiers: Diverticulitis site: unspecified part of intestinal tract Diverticulitis bleeding: without bleeding Diverticulitis complication: with perforation Qualified Code(s): K57.80 - Diverticulitis of intestine, part unspecified, with perforation and abscess without bleeding Plan to address problem: Surgery consulted, IV abx, IVF, supportive care, bowel rest, advance diet as tolerated. Add levaquin/flagyl, D/C zosyn (2) Abdominal pain Current Visit: Yes Status: Acute Plan to address problem: secondary to diverticulitis. (3) DVT prophylaxis Current Visit: Yes Status: Acute History Interval history: Pt resting in bed, Pt complains of abdominal pain. Pt spiked fever to 102. no additional reported nursing events. Hospitalist Physical - Constitutional Vitals: Temp Pulse Resp BP Pulse Ox 97.0 F L 71 16 128/66 100 10/07/16 08:00 10/07/16 08:00 10/07/16 08:00 10/07/16 08:00 10/07/16 08:00 General appearance: Present: no acute distress - EENT Eyes: Present: PERRL, EOM intact ENT: hearing intact - Neck Neck: Present: supple - Respiratory Respiratory effort: normal Respiratory: bilateral: CTA - Cardiovascular Rhythm: regular Heart Sounds: Present: S1 & S2 - Extremities Extremities: no ischemia Peripheral Pulses: within normal limits - Abdominal General gastrointestinal: soft, tender, non-distended, normal bowel sounds, no hepatomegaly, no splenomegaly, no mass - Integumentary Integumentary: Present: clear, warm, dry - Psychiatric Psychiatric: appropriate mood/affect, cooperative - Neurologic Neurologic: CNII-XII intact Results - Labs CBC & Chem 7: 10/07/16 06:47 10/04/16 10:50 Labs: Laboratory Last Values WBC 10.7 K/mm3 (4.5-11.0) 10/07/16 06:47 RBC 3.34 M/mm3 (3.65-5.03) L 10/07/16 06:47 Hgb 9.8 gm/dl (10.1-14.3) L 10/07/16 06:47 Hct 29.5 % (30.3-42.9) L 10/07/16 06:47 MCV 88 fl (79-97) 10/07/16 06:47 MCH 29 pg (28-32) 10/07/16 06:47 MCHC 33 % (30-34) 10/07/16 06:47 RDW 13.5 % (13.2-15.2) 10/07/16 06:47 Plt Count 249 K/mm3 (140-440) 10/07/16 06:47 Lymph % (Auto) 26.7 % (13.4-35.0) 10/07/16 06:47 [place] % (Auto) 8.6 % (0.0-7.3) H 10/07/16 06:47 Eos % (Auto) 0.1 % (0.0-4.3) 10/07/16 06:47 Baso % (Auto) 0.4 % (0.0-1.8) 10/07/16 06:47 Lymph # 2.9 K/mm3 (1.2-5.4) 10/07/16 06:47 [place] # 0.9 K/mm3 (0.0-0.8) H 10/07/16 06:47 Eos # 0.0 K/mm3 (0.0-0.4) 10/07/16 06:47 Baso # 0.0 K/mm3 (0.0-0.1) 10/07/16 06:47 Seg Neutrophils % 64.2 % (40.0-70.0) 10/07/16 06:47 Seg Neutrophils # 6.9 K/mm3 (1.8-7.7) 10/07/16 06:47 PT 12.6 Sec. (12.2-14.9) 10/04/16 10:50 INR 0.95 (0.87-1.13) 10/04/16 10:50 APTT 25.0 Sec. (24.2-36.6) 10/04/16 10:50 Carbon Dioxide 26 mmol/L (22-30) 10/04/16 10:50 BUN 7 mg/dL (7-17) 10/04/16 10:50 Creatinine 0.6 mg/dL (0.7-1.2) L 10/04/16 10:50 Estimated GFR > 60 ml/min 10/04/16 10:50 BUN/Creatinine Ratio 11.66 % 10/04/16 10:50 Glucose 143 mg/dL (65-100) H 10/04/16 10:50 Lactic Acid 1.5 mmol/L (0.7-2.0) 10/04/16 21:45 Calcium 9.5 mg/dL (8.4-10.2) 10/04/16 10:50 Total Creatine Kinase 47 units/L (30-135) 10/04/16 10:50 CK-MB (CK-2) < 1.0 ng/mL (0.0-4.0) 10/04/16 10:50 CK-MB (CK-2) Rel Index 2.1 (0-4) 10/04/16 10:50 Troponin T < 0.010 ng/mL (0.00-0.029) 10/04/16 21:45 Urine Color Yellow (Yellow) 10/04/16 10:59 Urine Turbidity Clear (Clear) 10/04/16 10:59 Urine pH 5.0 (5.0-7.0) 10/04/16 10:59 Ur Specific [place] 1.014 (1.003-1.030) 10/04/16 10:59 Urine Protein <15 mg/dl mg/dL (Negative) 10/04/16 10:59 Urine Glucose (UA) Neg mg/dL (Negative) 10/04/16 10:59 Urine Ketones Neg mg/dL (Negative) 10/04/16 10:59 Urine Blood Neg (Negative) 10/04/16 10:59 Urine Nitrite Neg (Negative) 10/04/16 10:59 Urine Bilirubin Neg (Negative) 10/04/16 10:59 Urine Urobilinogen < 2.0 mg/dL (<2.0) 10/04/16 10:59 Ur Leukocyte Esterase Neg (Negative) 10/04/16 10:59 Urine WBC (Auto) < 1.0 /HPF (0.0-6.0) 10/04/16 10:59 Urine RBC (Auto) 1.0 /HPF (0.0-6.0) 10/04/16 10:59 U Epithel Cells (Auto) 1.0 /HPF (0-13.0) 10/04/16 10:59 Urine Mucus Few /HPF 10/04/16 10:59
[2016-10-07] MEDS: LOVENOX SUB-Q SCH (21:31)
[2016-10-08] MEDS: FLAGYL 500 MG/100 ML 100 ML IV SCH ×3 (05:36→22:49)
[2016-10-08] MEDS: DILAUDID IV PRN ×3 (06:03→22:49)
[2016-10-08] MEDS: LEVAQUIN 500MG/100ML 100 ML IV SCH (11:34)
[2016-10-08] MEDS: D5NS 1,000 ML IV SCH (12:39)
--- NOTE | 2016-10-08 15:52 | Event Note ---
Date: 10/08/16 VSS AF labs normalized, OK to advance to clear liquids.
[2016-10-08] MEDS: LOVENOX SUB-Q SCH (22:49)
[2016-10-09] MEDS: FLAGYL 500 MG/100 ML 100 ML IV SCH (05:53)
[2016-10-09] MEDS: D5NS 1,000 ML IV SCH (05:54)
--- NOTE | 2016-10-09 07:46 | Progress Note ---
Assessment and Plan - Patient Problems (1) Diverticulitis Current Visit: Yes Status: Acute Qualifiers: Diverticulitis site: unspecified part of intestinal tract Diverticulitis bleeding: without bleeding Diverticulitis complication: with perforation Qualified Code(s): K57.80 - Diverticulitis of intestine, part unspecified, with perforation and abscess without bleeding Plan to address problem: Surgery consulted, IV abx, IVF, supportive care, bowel rest, advance diet as tolerated. Add levaquin/flagyl, D/C zosynadvance diet as tolerated, D/C planning in AM on oral abx (2) Abdominal pain Current Visit: Yes Status: Acute Plan to address problem: secondary to diverticulitis. (3) DVT prophylaxis Current Visit: Yes Status: Acute History Interval history: Pt resting in bed, Pt states abdominal pain is better. no additional reported nursing events.D/C planning in AM Hospitalist Physical - Constitutional Vitals: Temp Pulse Resp BP Pulse Ox 98.5 F 83 18 159/77 93 10/08/16 23:15 10/08/16 23:15 10/08/16 23:15 10/08/16 23:15 10/08/16 23:15 General appearance: Present: no acute distress - EENT Eyes: Present: PERRL, EOM intact ENT: hearing intact - Neck Neck: Present: supple - Respiratory Respiratory: bilateral: CTA - Cardiovascular Rhythm: regular Heart Sounds: Present: S1 & S2 - Extremities Extremities: no ischemia Peripheral Pulses: within normal limits - Abdominal General gastrointestinal: soft, non-tender, non-distended - Integumentary Integumentary: Present: clear, dry - Psychiatric Psychiatric: appropriate mood/affect, cooperative - Neurologic Neurologic: CNII-XII intact Results - Labs CBC & Chem 7: 10/07/16 06:47 10/04/16 10:50 Labs: Laboratory Last Values WBC 10.7 K/mm3 (4.5-11.0) 10/07/16 06:47 RBC 3.34 M/mm3 (3.65-5.03) L 10/07/16 06:47 Hgb 9.8 gm/dl (10.1-14.3) L 10/07/16 06:47 Hct 29.5 % (30.3-42.9) L 10/07/16 06:47 MCV 88 fl (79-97) 10/07/16 06:47 MCH 29 pg (28-32) 10/07/16 06:47 MCHC 33 % (30-34) 10/07/16 06:47 RDW 13.5 % (13.2-15.2) 10/07/16 06:47 Plt Count 249 K/mm3 (140-440) 10/07/16 06:47 Lymph % (Auto) 26.7 % (13.4-35.0) 10/07/16 06:47 [place] % (Auto) 8.6 % (0.0-7.3) H 10/07/16 06:47 Eos % (Auto) 0.1 % (0.0-4.3) 10/07/16 06:47 Baso % (Auto) 0.4 % (0.0-1.8) 10/07/16 06:47 Lymph # 2.9 K/mm3 (1.2-5.4) 10/07/16 06:47 [place] # 0.9 K/mm3 (0.0-0.8) H 10/07/16 06:47 Eos # 0.0 K/mm3 (0.0-0.4) 10/07/16 06:47 Baso # 0.0 K/mm3 (0.0-0.1) 10/07/16 06:47 Seg Neutrophils % 64.2 % (40.0-70.0) 10/07/16 06:47 Seg Neutrophils # 6.9 K/mm3 (1.8-7.7) 10/07/16 06:47 PT 12.6 Sec. (12.2-14.9) 10/04/16 10:50 INR 0.95 (0.87-1.13) 10/04/16 10:50 APTT 25.0 Sec. (24.2-36.6) 10/04/16 10:50 Carbon Dioxide 26 mmol/L (22-30) 10/04/16 10:50 BUN 7 mg/dL (7-17) 10/04/16 10:50 Creatinine 0.6 mg/dL (0.7-1.2) L 10/04/16 10:50 Estimated GFR > 60 ml/min 10/04/16 10:50 BUN/Creatinine Ratio 11.66 % 10/04/16 10:50 Glucose 143 mg/dL (65-100) H 10/04/16 10:50 Lactic Acid 1.5 mmol/L (0.7-2.0) 10/04/16 21:45 Calcium 9.5 mg/dL (8.4-10.2) 10/04/16 10:50 Total Creatine Kinase 47 units/L (30-135) 10/04/16 10:50 CK-MB (CK-2) < 1.0 ng/mL (0.0-4.0) 10/04/16 10:50 CK-MB (CK-2) Rel Index 2.1 (0-4) 10/04/16 10:50 Troponin T < 0.010 ng/mL (0.00-0.029) 10/04/16 21:45 Urine Color Yellow (Yellow) 10/04/16 10:59 Urine Turbidity Clear (Clear) 10/04/16 10:59 Urine pH 5.0 (5.0-7.0) 10/04/16 10:59 Ur Specific [place] 1.014 (1.003-1.030) 10/04/16 10:59 Urine Protein <15 mg/dl mg/dL (Negative) 10/04/16 10:59 Urine Glucose (UA) Neg mg/dL (Negative) 10/04/16 10:59 Urine Ketones Neg mg/dL (Negative) 10/04/16 10:59 Urine Blood Neg (Negative) 10/04/16 10:59 Urine Nitrite Neg (Negative) 10/04/16 10:59 Urine Bilirubin Neg (Negative) 10/04/16 10:59 Urine Urobilinogen < 2.0 mg/dL (<2.0) 10/04/16 10:59 Ur Leukocyte Esterase Neg (Negative) 10/04/16 10:59 Urine WBC (Auto) < 1.0 /HPF (0.0-6.0) 10/04/16 10:59 Urine RBC (Auto) 1.0 /HPF (0.0-6.0) 10/04/16 10:59 U Epithel Cells (Auto) 1.0 /HPF (0-13.0) 10/04/16 10:59 Urine Mucus Few /HPF 10/04/16 10:59
[2016-10-09] MEDS ORDERED: NORCO 5/325 PO PRN (07:49)
[2016-10-09] MEDS: FLAGYL PO SCH ×3 (09:29→22:55)
[2016-10-09] MEDS: LEVAQUIN PO SCH ×2 (09:30→11:11)
[2016-10-09] MEDS: TYLENOL PO PRN (11:11)
--- NOTE | 2016-10-09 11:51 | Discharge Summary ---
Providers - Providers Date of Admission: 10/05/16 00:29 Attending physician: ALEX ARCOS Primary care physician: DIRECTOR SELECTION AND ADMINISTRATION Hospitalization Condition: Good Disposition: STILL A PATIENT - Discharge Diagnoses (1) Diverticulitis Status: Acute Qualifiers: Diverticulitis site: unspecified part of intestinal tract Diverticulitis bleeding: without bleeding Diverticulitis complication: with perforation Qualified Code(s): K57.80 - Diverticulitis of intestine, part unspecified, with perforation and abscess without bleeding (2) Abdominal pain Status: Acute (3) DVT prophylaxis Status: Acute Exam - Constitutional Vitals: Temp Pulse Resp BP Pulse Ox 98.1 F 78 18 112/80 94 10/09/16 08:48 10/09/16 08:48 10/09/16 08:48 10/09/16 08:48 10/09/16 08:48 Plan Follow up with: PRIMARY CARE, [Primary Care Provider] - 3-5 Days Prescriptions: HYDROcodone/APAP 5-325 [[place] 5-325 mg TAB] 1 each PO Q8H PRN #24 tablet PRN Reason: Pain, Moderate (4-6) Levofloxacin [Levaquin TAB] 500 mg PO Q24HR #7 tablet metroNIDAZOLE [Flagyl TAB] 500 mg PO Q8HR #21 tablet
--- NOTE | 2016-10-09 14:54 | Cat Scan Report ---
FINAL REPORT PROCEDURE: CT ANGIO CHEST TECHNIQUE: Computerized tomographic angiography of the chest was performed after the IV injection of iodinated nonionic contrast including image processing. The image data was postprocessed using 2-dimensional multiplanar reformatted (MPR) and 3-dimensional (MIP and/or volume rendered) techniques. HISTORY: shortness of breath COMPARISON: Chest x-ray dated October 04, 2016 FINDINGS: Small pleural effusions are new since prior study. There is new CHF and pulmonary edema. More focal alveolar ground-glass infiltrate in the right upper lobe of the lungs may be pneumonia or asymmetric pulmonary edema. There is suspicion for mild underlying COPD. No mediastinal lymphadenopathy is seen. There is small pericardial effusion. Small likely reactive right hilar lymph node is seen. No pulmonary embolus is seen. IMPRESSION: No pulmonary embolus is seen. CHF with small pleural effusions and pulmonary edema are present. Asymmetric ground-glass and alveolar opacity in the right lung apex could be asymmetric pulmonary edema but consideration should be given to pneumonia, also.
[2016-10-09] MEDS ORDERED: APRESOLINE IV PRN (18:47)
--- NOTE | 2016-10-09 18:52 | Progress Note ---
Assessment and Plan - Patient Problems (1) CHF (congestive heart failure) Current Visit: Yes Status: Acute Plan to address problem: New onset: Echo, telemetry, diuresis, monitor uop q shift, fluid restriction, BNP, b guerline, girish I, (2) Acute respiratory failure with hypoxemia Current Visit: Yes Status: Acute Plan to address problem: supplemental oxygen, nebs,pulmonary toilet, NIPPV as clinically indicated. (3) Diverticulitis Current Visit: Yes Status: Acute Qualifiers: Diverticulitis site: unspecified part of intestinal tract Diverticulitis bleeding: without bleeding Diverticulitis complication: with perforation Qualified Code(s): K57.80 - Diverticulitis of intestine, part unspecified, with perforation and abscess without bleeding Plan to address problem: Surgery consulted, IV abx, IVF, supportive care, bowel rest, advance diet as tolerated. Add levaquin/flagyl, D/C zosynadvance diet as tolerated, D/C planning in AM on oral abx (4) Abdominal pain Current Visit: Yes Status: Acute Plan to address problem: secondary to diverticulitis. (5) DVT prophylaxis Current Visit: Yes Status: Acute History Interval history: Pt resting in bed, Pt states abdominal pain is better. no additional reported nursing events. Pt complains of shortness of breath. Pt found to be hypoxic with SAo2 of 82% on room air. Pt underwent CT chest which shows evidence of new onset CHF. Hospitalist Physical - Constitutional Vitals: Temp Pulse Resp BP Pulse Ox 98.2 F 80 22 195/94 99 10/09/16 16:00 10/09/16 16:00 10/09/16 16:00 10/09/16 16:00 10/09/16 16:00 General appearance: Present: no acute distress - EENT Eyes: Present: PERRL ENT: hearing intact - Neck Neck: Present: supple - Respiratory Respiratory: bilateral: diminished - Cardiovascular Rhythm: regular Heart Sounds: Present: S1 & S2 - Extremities Extremities: no ischemia Extremity abnormal: edema Peripheral Pulses: within normal limits - Abdominal General gastrointestinal: soft, non-tender, distended, no hepatomegaly, no splenomegaly - Integumentary Integumentary: Present: clear, dry - Psychiatric Psychiatric: appropriate mood/affect, cooperative - Neurologic Neurologic: CNII-XII intact, moves all extremities Results - Labs CBC & Chem 7: 10/07/16 06:47 10/04/16 10:50 Labs: Laboratory Last Values WBC 10.7 K/mm3 (4.5-11.0) 10/07/16 06:47 RBC 3.34 M/mm3 (3.65-5.03) L 10/07/16 06:47 Hgb 9.8 gm/dl (10.1-14.3) L 10/07/16 06:47 Hct 29.5 % (30.3-42.9) L 10/07/16 06:47 MCV 88 fl (79-97) 10/07/16 06:47 MCH 29 pg (28-32) 10/07/16 06:47 MCHC 33 % (30-34) 10/07/16 06:47 RDW 13.5 % (13.2-15.2) 10/07/16 06:47 Plt Count 249 K/mm3 (140-440) 10/07/16 06:47 Lymph % (Auto) 26.7 % (13.4-35.0) 10/07/16 06:47 [place] % (Auto) 8.6 % (0.0-7.3) H 10/07/16 06:47 Eos % (Auto) 0.1 % (0.0-4.3) 10/07/16 06:47 Baso % (Auto) 0.4 % (0.0-1.8) 10/07/16 06:47 Lymph # 2.9 K/mm3 (1.2-5.4) 10/07/16 06:47 [place] # 0.9 K/mm3 (0.0-0.8) H 10/07/16 06:47 Eos # 0.0 K/mm3 (0.0-0.4) 10/07/16 06:47 Baso # 0.0 K/mm3 (0.0-0.1) 10/07/16 06:47 Seg Neutrophils % 64.2 % (40.0-70.0) 10/07/16 06:47 Seg Neutrophils # 6.9 K/mm3 (1.8-7.7) 10/07/16 06:47 PT 12.6 Sec. (12.2-14.9) 10/04/16 10:50 INR 0.95 (0.87-1.13) 10/04/16 10:50 APTT 25.0 Sec. (24.2-36.6) 10/04/16 10:50 Carbon Dioxide 26 mmol/L (22-30) 10/04/16 10:50 BUN 7 mg/dL (7-17) 10/04/16 10:50 Creatinine 0.6 mg/dL (0.7-1.2) L 10/04/16 10:50 Estimated GFR > 60 ml/min 10/04/16 10:50 BUN/Creatinine Ratio 11.66 % 10/04/16 10:50 Glucose 143 mg/dL (65-100) H 10/04/16 10:50 Lactic Acid 1.5 mmol/L (0.7-2.0) 10/04/16 21:45 Calcium 9.5 mg/dL (8.4-10.2) 10/04/16 10:50 Total Creatine Kinase 47 units/L (30-135) 10/04/16 10:50 CK-MB (CK-2) < 1.0 ng/mL (0.0-4.0) 10/04/16 10:50 CK-MB (CK-2) Rel Index 2.1 (0-4) 10/04/16 10:50 Troponin T < 0.010 ng/mL (0.00-0.029) 10/04/16 21:45 Urine Color Yellow (Yellow) 10/04/16 10:59 Urine Turbidity Clear (Clear) 10/04/16 10:59 Urine pH 5.0 (5.0-7.0) 10/04/16 10:59 Ur Specific [place] 1.014 (1.003-1.030) 10/04/16 10:59 Urine Protein <15 mg/dl mg/dL (Negative) 10/04/16 10:59 Urine Glucose (UA) Neg mg/dL (Negative) 10/04/16 10:59 Urine Ketones Neg mg/dL (Negative) 10/04/16 10:59 Urine Blood Neg (Negative) 10/04/16 10:59 Urine Nitrite Neg (Negative) 10/04/16 10:59 Urine Bilirubin Neg (Negative) 10/04/16 10:59 Urine Urobilinogen < 2.0 mg/dL (<2.0) 10/04/16 10:59 Ur Leukocyte Esterase Neg (Negative) 10/04/16 10:59 Urine WBC (Auto) < 1.0 /HPF (0.0-6.0) 10/04/16 10:59 Urine RBC (Auto) 1.0 /HPF (0.0-6.0) 10/04/16 10:59 U Epithel Cells (Auto) 1.0 /HPF (0-13.0) 10/04/16 10:59 Urine Mucus Few /HPF 10/04/16 10:59
[2016-10-09] MEDS ORDERED: ZESTRIL PO SCH (22:00)
[2016-10-09] MEDS: COREG PO SCH (22:55)
[2016-10-09] MEDS: LOVENOX SUB-Q SCH (22:56)
[2016-10-09] MEDS: LASIX IV SCH (22:56)
[2016-10-09] MEDS: NACL 0.9% 500 ML IV SCH ×2 (23:15→23:17)
[2016-10-10] MEDS: LASIX IV SCH ×2 (05:37→18:11)
[2016-10-10] MEDS: FLAGYL PO SCH ×3 (05:37→22:19)
[2016-10-10] MEDS: COREG PO SCH ×2 (12:02→22:18)
[2016-10-10] MEDS: ZESTRIL PO SCH ×2 (12:02→22:18)
[2016-10-10] MEDS: LEVAQUIN PO SCH (12:02)
--- NOTE | 2016-10-10 15:34 | Event Note ---
Date: 10/10/16 Pt can be discharged from General Surgical standpoint on PO antibiotics ( levaquin and flagyll). Final decision for discharge given question of CHF, etc per Hospitalist. I will sign off. I will be happy to follow patient as outpatient for Diverticulitis.
[2016-10-10] MEDS ORDERED: ALUM-MAG HYDROX-SIMETH 200-200-20MG/5ML PO PRN (20:40)
[2016-10-10] MEDS: LOVENOX SUB-Q SCH (22:18)
[2016-10-10] MEDS: NACL 0.9% 500 ML IV SCH (22:22)
--- NOTE | 2016-10-11 05:22 | Progress Note ---
Assessment and Plan - Patient Problems (1) CHF (congestive heart failure) Current Visit: Yes Status: Acute Plan to address problem: New onset: Echo, telemetry, diuresis, monitor uop q shift, fluid restriction, BNP, b guerline, girish I, (2) Acute respiratory failure with hypoxemia Current Visit: Yes Status: Acute Plan to address problem: supplemental oxygen, nebs,pulmonary toilet, NIPPV as clinically indicated. (3) Diverticulitis Current Visit: Yes Status: Acute Qualifiers: Diverticulitis site: unspecified part of intestinal tract Diverticulitis bleeding: without bleeding Diverticulitis complication: with perforation Qualified Code(s): K57.80 - Diverticulitis of intestine, part unspecified, with perforation and abscess without bleeding Plan to address problem: Surgery consulted, IV abx, IVF, supportive care, bowel rest, advance diet as tolerated. Add levaquin/flagyl, D/C zosynadvance diet as tolerated, D/C planning in AM on oral abx (4) Abdominal pain Current Visit: Yes Status: Acute Plan to address problem: secondary to diverticulitis. (5) DVT prophylaxis Current Visit: Yes Status: Acute History Interval history: Pt resting in bed, Pt states abdominal pain is better. Pt tolerating diet. No reported nursing events. Pt denies pain. Hospitalist Physical - Constitutional Vitals: Temp Pulse Resp BP Pulse Ox 98.4 F 63 20 177/82 97 10/10/16 23:35 10/10/16 23:35 10/10/16 23:35 10/10/16 23:35 10/10/16 23:35 General appearance: Present: no acute distress - EENT Eyes: Present: PERRL ENT: hearing intact - Neck Neck: Present: supple - Respiratory Respiratory: bilateral: diminished - Cardiovascular Rhythm: regular Heart Sounds: Present: S1 & S2 - Extremities Extremities: no ischemia Extremity abnormal: edema Peripheral Pulses: within normal limits - Abdominal General gastrointestinal: soft, non-tender, non-distended, no hepatomegaly, no splenomegaly - Integumentary Integumentary: Present: clear, dry - Psychiatric Psychiatric: appropriate mood/affect, cooperative - Neurologic Neurologic: CNII-XII intact Results - Labs CBC & Chem 7: 10/07/16 06:47 10/04/16 10:50 Labs: Laboratory Last Values WBC 10.7 K/mm3 (4.5-11.0) 10/07/16 06:47 RBC 3.34 M/mm3 (3.65-5.03) L 10/07/16 06:47 Hgb 9.8 gm/dl (10.1-14.3) L 10/07/16 06:47 Hct 29.5 % (30.3-42.9) L 10/07/16 06:47 MCV 88 fl (79-97) 10/07/16 06:47 MCH 29 pg (28-32) 10/07/16 06:47 MCHC 33 % (30-34) 10/07/16 06:47 RDW 13.5 % (13.2-15.2) 10/07/16 06:47 Plt Count 249 K/mm3 (140-440) 10/07/16 06:47 Lymph % (Auto) 26.7 % (13.4-35.0) 10/07/16 06:47 [place] % (Auto) 8.6 % (0.0-7.3) H 10/07/16 06:47 Eos % (Auto) 0.1 % (0.0-4.3) 10/07/16 06:47 Baso % (Auto) 0.4 % (0.0-1.8) 10/07/16 06:47 Lymph # 2.9 K/mm3 (1.2-5.4) 10/07/16 06:47 [place] # 0.9 K/mm3 (0.0-0.8) H 10/07/16 06:47 Eos # 0.0 K/mm3 (0.0-0.4) 10/07/16 06:47 Baso # 0.0 K/mm3 (0.0-0.1) 10/07/16 06:47 Seg Neutrophils % 64.2 % (40.0-70.0) 10/07/16 06:47 Seg Neutrophils # 6.9 K/mm3 (1.8-7.7) 10/07/16 06:47 PT 12.6 Sec. (12.2-14.9) 10/04/16 10:50 INR 0.95 (0.87-1.13) 10/04/16 10:50 APTT 25.0 Sec. (24.2-36.6) 10/04/16 10:50 Carbon Dioxide 26 mmol/L (22-30) 10/04/16 10:50 BUN 7 mg/dL (7-17) 10/04/16 10:50 Creatinine 0.6 mg/dL (0.7-1.2) L 10/04/16 10:50 Estimated GFR > 60 ml/min 10/04/16 10:50 BUN/Creatinine Ratio 11.66 % 10/04/16 10:50 Glucose 143 mg/dL (65-100) H 10/04/16 10:50 Lactic Acid 1.5 mmol/L (0.7-2.0) 10/04/16 21:45 Calcium 9.5 mg/dL (8.4-10.2) 10/04/16 10:50 Total Creatine Kinase 47 units/L (30-135) 10/04/16 10:50 CK-MB (CK-2) < 1.0 ng/mL (0.0-4.0) 10/04/16 10:50 CK-MB (CK-2) Rel Index 2.1 (0-4) 10/04/16 10:50 Troponin T < 0.010 ng/mL (0.00-0.029) 10/04/16 21:45 NT-Pro-B Natriuret Pep 2833 pg/mL (0-900) H 10/09/16 19:06 Urine Color Yellow (Yellow) 10/04/16 10:59 Urine Turbidity Clear (Clear) 10/04/16 10:59 Urine pH 5.0 (5.0-7.0) 10/04/16 10:59 Ur Specific [place] 1.014 (1.003-1.030) 10/04/16 10:59 Urine Protein <15 mg/dl mg/dL (Negative) 10/04/16 10:59 Urine Glucose (UA) Neg mg/dL (Negative) 10/04/16 10:59 Urine Ketones Neg mg/dL (Negative) 10/04/16 10:59 Urine Blood Neg (Negative) 10/04/16 10:59 Urine Nitrite Neg (Negative) 10/04/16 10:59 Urine Bilirubin Neg (Negative) 10/04/16 10:59 Urine Urobilinogen < 2.0 mg/dL (<2.0) 10/04/16 10:59 Ur Leukocyte Esterase Neg (Negative) 10/04/16 10:59 Urine WBC (Auto) < 1.0 /HPF (0.0-6.0) 10/04/16 10:59 Urine RBC (Auto) 1.0 /HPF (0.0-6.0) 10/04/16 10:59 U Epithel Cells (Auto) 1.0 /HPF (0-13.0) 10/04/16 10:59 Urine Mucus Few /HPF 10/04/16 10:59
[2016-10-11] MEDS: FLAGYL PO SCH ×2 (06:14→15:34)
[2016-10-11] MEDS: LASIX IV SCH (06:14)
--- NOTE | 2016-10-11 08:36 | Progress Note ---
Assessment and Plan Assessment and plan: (1) CHF (congestive heart failure) New onset: Echo (pending), telemetry, diuresis, monitor uop q shift, fluid restriction, b guerline, girish I, (2) Acute respiratory failure with hypoxemia supplemental oxygen, nebs,pulmonary toilet, NIPPV as clinically indicated. (3) Diverticulitis with small perforation IV abx, IVF, supportive care, bowel rest, advance diet as tolerated. Add levaquin/flagyl, D/C zosynadvance diet as tolerated, D/C planning in AM on oral abx surgery consult appreciated (4) Abdominal pain secondary to diverticulitis. (5) DVT prophylaxis Current Visit: Yes Status: Acute History Interval history: Patient lying comfortably on the bed. No new complaints, no nursing issues overnight. Hospitalist Physical - Physical exam Narrative exam: Not in cardiopulmonary distress. The patient appeared well nourished and normally developed. Vital signs as documented. Head exam is unremarkable. No scleral icterus . Neck is without jugular venous distension, thyromegaly, or carotid bruits. Lungs are clear to auscultation. Cardiac exam reveals regular rate and Rhythm. First and second heart sounds normal. No murmurs, rubs or gallops. Abdominal exam reveals normal bowel sounds, no masses, no organomegaly and no aortic enlargement. Extremities are nonedematous and both femoral and pedal pulses are normal. CILNICAL SCIENTIST: Alert and oriented 3. No focal weakness. - Constitutional Vitals: Temp Pulse Resp BP Pulse Ox 98.4 F 63 20 177/82 97 10/10/16 23:35 10/10/16 23:35 10/10/16 23:35 10/10/16 23:35 10/10/16 23:35 General appearance: Present: no acute distress Results - Labs CBC & Chem 7: 10/07/16 06:47 10/04/16 10:50 Labs: Laboratory Last Values WBC 10.7 K/mm3 (4.5-11.0) 10/07/16 06:47 RBC 3.34 M/mm3 (3.65-5.03) L 10/07/16 06:47 Hgb 9.8 gm/dl (10.1-14.3) L 10/07/16 06:47 Hct 29.5 % (30.3-42.9) L 10/07/16 06:47 MCV 88 fl (79-97) 10/07/16 06:47 MCH 29 pg (28-32) 10/07/16 06:47 MCHC 33 % (30-34) 10/07/16 06:47 RDW 13.5 % (13.2-15.2) 10/07/16 06:47 Plt Count 249 K/mm3 (140-440) 10/07/16 06:47 Lymph % (Auto) 26.7 % (13.4-35.0) 10/07/16 06:47 [place] % (Auto) 8.6 % (0.0-7.3) H 10/07/16 06:47 Eos % (Auto) 0.1 % (0.0-4.3) 10/07/16 06:47 Baso % (Auto) 0.4 % (0.0-1.8) 10/07/16 06:47 Lymph # 2.9 K/mm3 (1.2-5.4) 10/07/16 06:47 [place] # 0.9 K/mm3 (0.0-0.8) H 10/07/16 06:47 Eos # 0.0 K/mm3 (0.0-0.4) 10/07/16 06:47 Baso # 0.0 K/mm3 (0.0-0.1) 10/07/16 06:47 Seg Neutrophils % 64.2 % (40.0-70.0) 10/07/16 06:47 Seg Neutrophils # 6.9 K/mm3 (1.8-7.7) 10/07/16 06:47 PT 12.6 Sec. (12.2-14.9) 10/04/16 10:50 INR 0.95 (0.87-1.13) 10/04/16 10:50 APTT 25.0 Sec. (24.2-36.6) 10/04/16 10:50 Carbon Dioxide 26 mmol/L (22-30) 10/04/16 10:50 BUN 7 mg/dL (7-17) 10/04/16 10:50 Creatinine 0.6 mg/dL (0.7-1.2) L 10/04/16 10:50 Estimated GFR > 60 ml/min 10/04/16 10:50 BUN/Creatinine Ratio 11.66 % 10/04/16 10:50 Glucose 143 mg/dL (65-100) H 10/04/16 10:50 Lactic Acid 1.5 mmol/L (0.7-2.0) 10/04/16 21:45 Calcium 9.5 mg/dL (8.4-10.2) 10/04/16 10:50 Total Creatine Kinase 47 units/L (30-135) 10/04/16 10:50 CK-MB (CK-2) < 1.0 ng/mL (0.0-4.0) 10/04/16 10:50 CK-MB (CK-2) Rel Index 2.1 (0-4) 10/04/16 10:50 Troponin T < 0.010 ng/mL (0.00-0.029) 10/04/16 21:45 NT-Pro-B Natriuret Pep 2833 pg/mL (0-900) H 10/09/16 19:06 Urine Color Yellow (Yellow) 10/04/16 10:59 Urine Turbidity Clear (Clear) 10/04/16 10:59 Urine pH 5.0 (5.0-7.0) 10/04/16 10:59 Ur Specific [place] 1.014 (1.003-1.030) 10/04/16 10:59 Urine Protein <15 mg/dl mg/dL (Negative) 10/04/16 10:59 Urine Glucose (UA) Neg mg/dL (Negative) 10/04/16 10:59 Urine Ketones Neg mg/dL (Negative) 10/04/16 10:59 Urine Blood Neg (Negative) 10/04/16 10:59 Urine Nitrite Neg (Negative) 10/04/16 10:59 Urine Bilirubin Neg (Negative) 10/04/16 10:59 Urine Urobilinogen < 2.0 mg/dL (<2.0) 10/04/16 10:59 Ur Leukocyte Esterase Neg (Negative) 10/04/16 10:59 Urine WBC (Auto) < 1.0 /HPF (0.0-6.0) 10/04/16 10:59 Urine RBC (Auto) 1.0 /HPF (0.0-6.0) 10/04/16 10:59 U Epithel Cells (Auto) 1.0 /HPF (0-13.0) 10/04/16 10:59 Urine Mucus Few /HPF 10/04/16 10:59
--- NOTE | 2016-10-11 08:57 | Echocardiography Report ---
Transthoracic Echocardiogram Indication: EVALUATE LEFT VENTRICULAR FUNCTION BP: 167/74 HR: 62 Conclusions *1. Normal LV function, EF 60%. *2. Mild conc LVH. *3. Dilated LA. *4. Aortic valve sclerosis, no . *5. Mild-moderate TR, mild-moderate pulm HTN. Findings Procedure Info: The study quality is fair. Left Ventricle: The left ventricular chamber size is normal. Mild concentric left ventricular hypertrophy is observed. Global left ventricular systolic function is normal. The estimated ejection fraction is 55-60%. Left Atrium: The left atrium is mildly dilated. Right Ventricle: The right ventricle is not well visualized. The right ventricular cavity size is normal. The right ventricular global systolic function is normal. Right Atrium: The right atrial cavity size is normal. Aortic Valve: The aortic valve is trileaflet. The aortic valve leaflets are moderately thickened. Mild aortic leaflet calcification is visualized. Systolic excursion of the aortic valve is normal. Mild aortic cusp sclerosis is present. There is trace of aortic regurgitation. There is no evidence of aortic stenosis. Mitral Valve: The mitral valve leaflets appear myxomatous. The mitral valve leaflets are mildly thickened. There is mild mitral regurgitation. There is no evidence of mitral stenosis. Tricuspid Valve: The tricuspid valve is not well visualized. There is mild to moderate tricuspid regurgitation. The right ventricular systolic pressure is calculated at 40 mmHg. There is evidence of mild pulmonary hypertension. There is no tricuspid stenosis. Pulmonic Valve: The pulmonic valve is not well visualized. There is no evidence of pulmonic regurgitation. There is no pulmonic stenosis. Pericardium: A trivial pericardial effusion is visualized. No pleural effusion is present. Aorta: There is no dilatation of the ascending aorta. There is no dilatation of the aortic root. Measurements Chambers MM Name Value Normal Range IVSd (MM) 1.02 cm (0.6 - 1.1) LVPWd (MM) 0.86 cm (0.6 - 1.1) IVS:LVPW ratio 1.19 ratio - LVIDd (MM) 4.49 cm (3.7 - 5.6) LVIDs (MM) 2.41 cm (2 - 2.8) LV FS (Teichholz) (MM) 46.3 % - LV FS (cube) (MM) 46.3 % - EF Teichholz (MM) 77.8 % - Ao root diameter (MM) 3.1 cm (2 - 3.7) LA dimension (AP) MM 4.2 cm (1.9 - 4) LA:Ao ratio (MM) 1.35 ratio - AV cusp separation (MM) 1.6 cm (1.5 - 2.6) Chambers 2D Name Value Normal Range IVSd (2D) 0.84 cm (0.6 - 1.1) LVPWd 0.9 cm - LVPWd (2D) 0.89 cm (0.6 - 1.1) IVS:LVPW ratio (2D) 0.94 ratio - LVIDd 4.5 cm - LVIDs 3 cm - LVIDd (2D) 4.45 cm (3.7 - 5.6) LVIDs (2D) 3.02 cm (2 - 3.8) LV FS (Teichholz) (2D) 32.1 % - LV FS (cube) (2D) 32.1 % - LV EF (2D) 60 % - EF Teichholz (2D) 60.5 % - LA dimension 3.9 cm - Ao root diameter (2D) 2.8 cm (2 - 3.7) LA dimension (AP) 2D 3.9 cm (1.9 - 4) LA:Ao ratio (2D) 1.39 ratio - Volumes/Mass Name Value Normal Range LA ESV SP 4CH (MOD) 53 ml - LV EDV SP 4CH (MOD) 100 ml - LV ESV SP 4CH (MOD) 31 ml - EF SP 4CH (MOD) 69 % - Diastolic/Systolic Function Name Value Normal Range MV E-wave Vmax 0.7 m/sec - MV deceleration time 306 msec - MV A-wave Vmax 0.94 m/sec - MV E:A ratio 0.7 ratio - LV septal e' Vmax 0.06 m/sec - LV lateral e' Vmax 0.08 m/sec - LV E:e' septal ratio 11.7 ratio - LV E:e' lateral ratio 8.6 ratio - Aortic Valve Name Value Normal Range AV Vmax 1.88 m/sec - AV peak gradient 14 mmHg - LVOT diameter 2 cm - LVOT Vmax 1.6 m/sec - LVOT peak gradient 10 mmHg - DANIEL (continuity Vmax) 2.67 cm2 - Tricuspid Valve Name Value Normal Range TR Vmax 3.15 m/sec - TR peak gradient 40 mmHg - RVSP 40 mmHg - Pulmonic Valve/Qp:Qs Name Value Normal Range PV Vmax 0.93 m/sec - PV peak gradient 3 mmHg - PV acceleration time 102 msec -
[2016-10-11] MEDS ORDERED: ZESTRIL PO SCH (10:00)
[2016-10-11] MEDS: COREG PO SCH (10:53)
[2016-10-11] MEDS: LEVAQUIN PO SCH (10:53)
--- NOTE | 2016-10-11 12:09 | Discharge Summary ---
Providers - Providers Date of Admission: 10/05/16 00:29 Date of discharge: 10/11/16 Attending physician: KENYA VERDE MD Primary care physician: MATTY MERCER MD Hospitalization Reason for admission: diverticulitis Condition: Good Hospital course: Patient was admitted for diverticulitis with perforation and she was treated with IV antibiotics. Surgery was consulted and recommended conservative management with antibiotics. Patient is getting better, no abdominal pain, patient tolerate diet. Patient was stable by the time of discharge. patient was discharged with Po antibiotics. Discharge Diagnosis ((1) CHF (congestive heart failure) Current Visit: Yes Status: Acute (2) Acute respiratory failure with hypoxemia Current Visit: Yes Status: Acute (3) Diverticulitis Current Visit: Yes Status: Acute Qualifiers: Diverticulitis site: unspecified part of intestinal tract Diverticulitis bleeding: without bleeding Diverticulitis complication: with perforation Qualified Code(s): K57.80 - Diverticulitis of intestine, part unspecified, with perforation and abscess without bleeding (4) Abdominal pain secondary to diverticulitis. Disposition: DISCHARGED TO HOME OR SELFCARE Time spent for discharge: 31 minutes Core Measure Documentation - Palliative Care Palliative Care/ Comfort Measures: Not Applicable - Core Measures Any of the following diagnoses?: none Exam - Physical Exam Narrative exam: Not in cardiopulmonary distress. The patient appeared well nourished and normally developed. Vital signs as documented. Head exam is unremarkable. No scleral icterus . Neck is without jugular venous distension, thyromegaly, or carotid bruits. Lungs are clear to auscultation. Cardiac exam reveals regular rate and Rhythm. First and second heart sounds normal. No murmurs, rubs or gallops. Abdominal exam reveals normal bowel sounds, no masses, no organomegaly and no aortic enlargement. Extremities are nonedematous and both femoral and pedal pulses are normal. CHIEF CRNA: Alert and oriented 3. No focal weakness. - Constitutional Vitals: Temp Pulse Resp BP Pulse Ox 98.2 F 73 16 128/60 100 10/11/16 08:00 10/11/16 08:00 10/11/16 08:00 10/11/16 08:00 10/11/16 08:00 Plan Activity: no restrictions Weight Bearing Status: Full Weight Bearing Diet: low cholesterol Follow up with: MATTY MERCER MD [Primary Care Provider] - 7 Days Forms: Work/School Release Form Prescriptions: Sennosides/Docusate Sodium [Doc-Q-Lax Tablet] 1 each PO BID #24 tablet metroNIDAZOLE [Flagyl TAB] 500 mg PO Q8HR #21 tablet Hydrochlorothiazide [HCTZ] 25 mg PO QDAY #30 tablet Levofloxacin [Levaquin TAB] 500 mg PO Q24HR #7 tablet HYDROcodone/APAP 5-325 [[place] 5-325 mg TAB] 1 each PO Q8H PRN #10 tablet PRN Reason: Pain, Moderate (4-6) amLODIPine [Norvasc] 5 mg PO DAILY #30 tablet
[2016-10-11] MEDS ORDERED: CEPACOL X STRENGTH MM PRN (15:58)
[2016-10-11 17:28] VITALS: BP 158/94
== END 2016-10-11 18:14 | disposition home or self-care (01) | DRG 291 ==
LOC: ED 10:10 → 3A 10-05 00:29
PROVIDERS: ADMIT Internal Medicine; ATTEND Internal Medicine
DX: I11.0 Hypertensive heart disease with heart failure (principal); J96.01 Acute respiratory failure with hypoxia; K57.20 Diverticulitis of large intestine with perforation and abscess without bleeding; F17.210 Nicotine dependence, cigarettes, uncomplicated; I50.9 Heart failure, unspecified; M19.90 Unspecified osteoarthritis, unspecified site; Z88.5 Allergy status to narcotic agent; Z82.49 Family history of ischemic heart disease and other diseases of the circulatory system
CPT/HCPCS: 36415; 71020; 71275; 74020; 74177; 80048; 81001; 82140; 82550; 82553; 83880; 84484; 85025; 85610; 85730; 87040; 93005; 93010; 93306; 96365; 96366; 96375; J1170; J1650; J1940; J1956; J2270; J2405; J2543; J7040; J7042; Q9967